=== PATIENT | female | born 1935 | race Caucasian/White ===

== ENCOUNTER 2018-10-28 08:34 | Emergency (ER) | payer MEDICARE, MEDICAID ==
[2018-10-28] MEDS ORDERED: LORazepam 0.5 MG Tab PO ONE (10:56)
--- NOTE | 2018-10-28 11:00 | EDM.PDOCBH ---
ED HPI GENERAL MEDICAL PROBLEM - General Chief Complaint: Behavioral/Psych Stated Complaint: VIA [facility]TH Time Seen by Provider: 10/28/18 08:50 Source of Information: Reports: Patient History Limitations: Reports: No Limitations - History of Present Illness INITIAL COMMENTS - FREE TEXT/NARRATIVE: pt has a known history of dementa and she got up angry and nort willing to be cooperative. She did begin to get physical and the exhibits manager were called. Her daughter felt like there could be something physically wrong. She did get brought in by ambulance. Onset: Other (pad week has been difficult with the pt. ) Duration: Hour(s): Location: Reports: Generalized Associated Symptoms: Reports: Confusion, Other ( agitation) - Related Data Allergies Allergy/AdvReac Type Severity Reaction Status Date / Time No Known Allergies Allergy Verified 10/28/18 08:43 Home Meds: Home Meds Aspirin [Halfprin] 81 mg PO DAILY 03/06/18 [History] Donepezil HCl 5 mg PO BEDTIME 03/06/18 [History] Citalopram Hydrobromide [Celexa] 10 mg PO DAILY 10/28/18 [History] Clopidogrel Bisulfate [Clopidogrel] 75 mg PO DAILY 10/28/18 [History] Lisinopril 2.5 mg PO DAILY 10/28/18 [History] Metoprolol Tartrate 12.5 mg PO BID 10/28/18 [History] atorvaSTATin [Lipitor] 40 mg PO BEDTIME 10/28/18 [History] diphenhydrAMINE HCl [Unisom] 50 mg PO BEDTIME PRN 10/28/18 [History] Past Medical History Cardiovascular History: Reports: High Cholesterol, Hypertension Genitourinary History: Reports: Urinary Incontinence 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: Musculoskeletal History: Reports: Osteoporosis Neurological History: Reports: Alzheimers Disease Psychiatric History: Reports: Alzheimers Disease Endocrine/Metabolic History: Reports: Other (See Below) Other Endocrine/Metabolic History: hyperglycemia - Past Surgical History HEENT Surgical History: Reports: Tonsillectomy Musculoskeletal Surgical History: Reports: Other (See Below) Other Musculoskeletal Surgeries/Procedures:: bunion surgery Social & Family History - Tobacco Use Smoking Status *Q: Never Smoker - Caffeine Use Caffeine Use: Reports: Coffee - Recreational Drug Use Recreational Drug Use: No ED ROS GENERAL - Review of Systems Review Of Systems: See Below Constitutional: Reports: No Symptoms HEENT: Reports: No Symptoms Respiratory: Reports: No Symptoms Cardiovascular: Reports: No Symptoms Endocrine: Reports: No Symptoms GI/Abdominal: Reports: No Symptoms : Reports: No Symptoms Musculoskeletal: Reports: No Symptoms Skin: Reports: No Symptoms Neurological: Reports: Confusion Psychiatric: Reports: Agitation, Mood Lability, Other ( very difficult at times. ) ED EXAM, BEHAVIORAL HEALTH - Physical Exam Exam: See Below Text/Narrative:: pt arrived with being more agitated and difficult. She would not liten to anyone and she did ge physical. by the time she arrived here she was calmer. Exam Limited By: No Limitations General Appearance: Alert, Other ( confused. Not able to answer alot of questions. pupils are equal and reactive. ) Ears: Normal TMs Nose: Normal Inspection Throat/Mouth: Normal Inspection Head: Atraumatic Neck: Normal Inspection Respiratory/Chest: No Respiratory Distress Cardiovascular: Regular Rate, Rhythm GI/Abdominal: Soft, Non-Tender (Female) Exam: Deferred Back Exam: Normal Inspection Extremities: Normal Inspection COURSE, BEHAVIORAL HEALTH COMP - Course Vital Signs: Last Vital Signs Temp 35.4 C 10/28/18 08:57 Pulse 67 10/28/18 08:57 Resp 16 10/28/18 08:57 BP 158/74 H 10/28/18 08:57 Pulse Ox 95 10/28/18 08:57 Orders, Labs, Meds: Active Orders 24 hr Category Date Time Status CULTURE URINE [RM] Stat Lab 10/28/18 09:29 Received Laboratory Tests 10/28/18 10/28/18 10/28/18 Range/Units 08:59 08:59 08:59 WBC 7.5 (4.5-11.0) K/uL RBC 4.65 (3.30-5.50) M/uL Hgb 13.4 (12.0-15.0) g/dL Hct 42.9 (36.0-48.0) % MCV 92 (80-98) fL MCH 29 (27-31) pg MCHC 31 L (32-36) % Plt Count 255 (150-400) K/uL Neut % (Auto) 57 (36-66) % Lymph % (Auto) 26 (24-44) % [place] % (Auto) 12 H (2-6) % Eos % (Auto) 4 (2-4) % Baso % (Auto) 1 (0-1) % Sodium 141 (140-148) mmol/L Potassium 4.0 (3.6-5.2) mmol/L Chloride 105 (100-108) mmol/L Carbon Dioxide 25 (21-32) mmol/L Anion Gap 11.3 (5.0-14.0) mmol/L BUN 16 (7-18) mg/dL Creatinine 1.0 (0.6-1.0) mg/dL Est Cr Clr Drug Dosing 32.16 mL/min Estimated GFR (MDRD) 53 L (>60) Glucose 116 H (74-106) mg/dL Calcium 8.8 (8.5-10.1) mg/dL Total Bilirubin 0.3 (0.2-1.0) mg/dL AST 24 (15-37) U/L ALT 29 (12-78) U/L Alkaline Phosphatase 99 (46-116) U/L Total Protein 7.0 (6.4-8.2) g/dL Albumin 3.1 L (3.4-5.0) g/dL Globulin 3.9 H (2.3-3.5) g/dL Albumin/Globulin Ratio 0.8 L (1.2-2.2) Urine Color Yellow Urine Appearance Slightly cloudy Urine pH 5.0 (4.5-8.0) Ur Specific Cooper 1.025 (1.008-1.030) Urine Protein Trace (NEGATIVE) mg/dL Urine Glucose (UA) Normal (NEGATIVE) mg/dL Urine Ketones Negative (NEGATIVE) mg/dL Urine Occult Blood Negative (NEGATIVE) Urine Nitrite Negative (NEGATIVE) Urine Bilirubin Negative (NEGATIVE) Urine Urobilinogen Normal (NORMAL) mg/dL Ur Leukocyte Esterase Negative (NEGATIVE) Urine RBC Not seen (0-5) Urine WBC 0-5 (0-5) Ur Epithelial Cells Many Amorphous Sediment Not seen Urine Bacteria Moderate Urine Mucus Few Medications Discontinued Medications Generic Name Dose Route Start Last Admin Trade Name Freq PRN Reason Stop Dose Admin Lorazepam 0.5 mg 10/28/18 10:56 Ativan PO 10/28/18 10:57 ONETIME ONE Medical Clearance: 10/28/18 11:19 pt did not look like a particularly infected urine, her labs otherwise were normal. The situation was discussed with her daughter and if her behavior continues to be a problem she may need a med adjstment in a senior behavioral center. Departure - Departure Time of Disposition: 10:57 Disposition: Home, Self-Care 01 Condition: Fair Clinical Impression: Agitation, Dementia - Discharge Information Instructions: Dementia, [id number] Referrals: Kristopher Sanches MD [Primary Care Provider] - Forms: ED Department Discharge Care Plan Goals: increase celexa to 20mg daily--2 tabs daily, push fluids, continue other meds, if persistent behavior issues consider placement in the Senior behavior unit. - My Orders Last 24 Hours: My Active Orders 10/28/18 09:29 CULTURE URINE [RM] Stat - Assessment/Plan Last 24 Hours: My Active Orders 10/28/18 09:29 CULTURE URINE [RM] Stat
== END 2018-10-28 11:48 | disposition home or self-care (01) ==
LOC: JP.ED 08:34
DX: R45.1 Restlessness and agitation (principal); F03.90 Unspecified dementia, unspecified severity, without behavioral disturbance, psychotic disturbance, mood disturbance, and anxiety; E78.00 Pure hypercholesterolemia, unspecified; I10 Essential (primary) hypertension; Z79.82 Long term (current) use of aspirin; Z79.899 Other long term (current) drug therapy
CPT/HCPCS: 36415; 80053; 81001; 85025; 87086; 99283; 99284

== ENCOUNTER 2019-03-28 13:15 | Emergency (ER) | payer MEDICARE ==
--- NOTE | 2019-03-28 14:04 | EDM.PDOC ---
ED HPI GENERAL MEDICAL PROBLEM - General Chief Complaint: General Stated Complaint: SOB Time Seen by Provider: 03/28/19 13:45 Source of Information: Reports: Patient, Family History Limitations: Reports: Physical Impairment (Patient has significant dementia and is a poor historian) - History of Present Illness INITIAL COMMENTS - FREE TEXT/NARRATIVE: 83-year-old female fell down some stairs 3 weeks ago, sustaining a right chest wall injury. She refused transportation by EMS on that night, the following week went into the clinic to be checked and was found to be stable. She refused any x-rays at that time. She has done reasonably well but over the past several days she has seemed more short of breath especially with any activity. A home health nurse jacob today felt she should be evaluated. There was a concern for asymmetric breath sounds with decreased breath sounds on the right side. She denies any pain, she says she is fine. Onset: Unknown/Unsure (Fall was 3 weeks ago, shortness of breath has been over the last several days) Worsens with: Reports: Other (Activity causes dyspnea), Movement - Related Data Allergies Allergy/AdvReac Type Severity Reaction Status Date / Time No Known Allergies Allergy Verified 10/28/18 08:43 Home Meds: Home Meds Aspirin [Halfprin] 81 mg PO DAILY 03/06/18 [History] Donepezil HCl 5 mg PO BEDTIME 03/06/18 [History] Citalopram Hydrobromide [Celexa] 10 mg PO DAILY 10/28/18 [History] Clopidogrel Bisulfate [Clopidogrel] 75 mg PO DAILY 10/28/18 [History] Metoprolol Tartrate 12.5 mg PO BID 10/28/18 [History] atorvaSTATin [Lipitor] 40 mg PO BEDTIME 10/28/18 [History] lisinopriL [Lisinopril] 2.5 mg PO DAILY 10/28/18 [History] Cholecalciferol (Vitamin D3) [Vitamin D] 1,000 unit PO DAILY 02/28/19 [History] Past Medical History Cardiovascular History: Reports: High Cholesterol, Hypertension Genitourinary History: Reports: Urinary Incontinence 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: Musculoskeletal History: Reports: Osteoporosis Neurological History: Reports: Alzheimers Disease Psychiatric History: Reports: Alzheimers Disease Endocrine/Metabolic History: Reports: Other (See Below) Other Endocrine/Metabolic History: hyperglycemia - Past Surgical History HEENT Surgical History: Reports: Tonsillectomy Musculoskeletal Surgical History: Reports: Other (See Below) Other Musculoskeletal Surgeries/Procedures:: bunion surgery Social & Family History - Tobacco Use Smoking Status *Q: Never Smoker - Caffeine Use Caffeine Use: Reports: Coffee, Soda - Recreational Drug Use Recreational Drug Use: No ED ROS GENERAL - Review of Systems Review Of Systems: See Below Constitutional: Denies: Fever, Chills HEENT: Reports: Other (Small abrasion on her upper lip is new in the past 1 to 2 days but she denies trauma) Respiratory: Reports: Shortness of Breath (Especially with activity). Denies: Cough Cardiovascular: Reports: Chest Pain (Right posterior flank pain and right lateral chest pain is improving) GI/Abdominal: Reports: No Symptoms Skin: Reports: Bruising (Bruising has resolved) Neurological: Reports: Confusion Psychiatric: Reports: Agitation (Patient has dementia and gets agitated very easily, does not cooperate well) ED EXAM, GENERAL - Physical Exam Exam: See Below Exam Limited By: No Limitations General Appearance: Alert, No Apparent Distress Eye Exam: Bilateral Eye: Normal Inspection Head: Atraumatic Neck: Normal Inspection, Supple Respiratory/Chest: No Respiratory Distress, Decreased Breath Sounds (There are definitely decreased breath sounds in the right posterior lung), Other (I can also palpate crepitus on the right posterior chest over the lower ribs) Cardiovascular: Regular Rate, Rhythm. No: Tachycardia Extremities: Normal Inspection Neurological: Alert, Confused (She is at her baseline amount of confusion) Skin Exam: Warm, Dry Course - Vital Signs Last Recorded V/S: Last Vital Signs Temp 97.9 F 03/28/19 13:36 Pulse 77 03/28/19 13:36 Resp 18 03/28/19 13:36 BP 167/68 H 03/28/19 13:36 Pulse Ox 93 L 03/28/19 13:36 - Orders/Labs/Meds Orders: Active Orders 24 hr Category Date Time Status US Guidance Thoracentesis NC [US] Stat Exams 03/28/19 14:15 Taken CULTURE ANAEROBIC [RM] Routine Lab 03/28/19 15:13 Received CULTURE BODY FLUID + SMEAR [RM] Routine Lab 03/28/19 15:12 Results Labs: Laboratory Tests 03/28/19 03/28/19 Range/Units 14:19 14:19 WBC 9.6 (4.5-11.0) K/uL RBC 4.15 (3.30-5.50) M/uL Hgb 11.7 L D (12.0-15.0) g/dL Hct 38.2 (36.0-48.0) % MCV 92 (80-98) fL MCH 28 (27-31) pg MCHC 31 L (32-36) % Plt Count 441 H (150-400) K/uL Neut % (Auto) 73 H (36-66) % Lymph % (Auto) 10 L (24-44) % Sebastian % (Auto) 13 H (2-6) % Eos % (Auto) 4 (2-4) % Baso % (Auto) 0 (0-1) % Sodium 136 L (140-148) mmol/L Potassium 4.1 (3.6-5.2) mmol/L Chloride 101 (100-108) mmol/L Carbon Dioxide 27 (21-32) mmol/L Anion Gap 12.1 (5.0-14.0) mmol/L BUN 20 H (7-18) mg/dL Creatinine 0.9 (0.6-1.0) mg/dL Est Cr Clr Drug Dosing 35.11 mL/min Estimated GFR (MDRD) 60 (>60) Glucose 138 H (74-106) mg/dL Calcium 8.7 (8.5-10.1) mg/dL - Re-Assessments/Exams Free Text/Narrative Re-Assessment/Exam: 03/28/19 14:04 Patient was sent for two-view chest x-ray. 03/28/19 14:17 Chest x-ray confirms a very large right pleural effusion and rib fractures are evident in the posterior ribs. A baseline CBC and BMP will be drawn and Dr. Dawn was consulted for thoracentesis. Ultrasound guidance was ordered. 03/28/19 15:14 Thoracentesis was performed by Dr. Dawn. 1400 cc of nonclotting bloody effusion was removed from the lung space, and a repeat x-ray showed significant improvement without pneumothorax. We will set her up for a repeat chest x-ray with her primary care doctor on Monday next week, and she can return sooner if worsening. 03/28/19 15:45 White count was normal, hemoglobin 11.7. 03/28/19 15:45 The rest of her labs were normal Departure - Departure Time of Disposition: 16:08 Disposition: Home, Self-Care 01 Clinical Impression: Hemothorax Right rib fracture Qualifiers: Encounter type: initial encounter Rib fracture type: single rib Fracture type: closed Qualified Code(s): S22.31XA - Fracture of one rib, right side, initial encounter for closed fracture - Discharge Information Instructions: Hemothorax Referrals: PCP,None [Primary Care Provider] - Forms: ED Department Discharge Care Plan Goals: Recheck on Monday with Dr. Sanches for a repeat chest x-ray. Your appointment is at 10:30 AM, if you going sooner you can get the x-ray done prior to your appointment. Return sooner if worsening or concerns such as significant shortness of breath returning rapidly. Sepsis Event Note - Evaluation Sepsis Screening Result: No Definite Risk - Focused Exam Vital Signs: Vital Signs Temp Pulse Resp BP Pulse Ox 03/28/19 13:36 97.9 F 77 18 167/68 H 93 L 03/28/19 13:34 97.9 F 77 18 167/68 H 93 L Date Exam was Performed: 03/28/19 Time Exam was Performed: 16:18 - My Orders Last 24 Hours: My Active Orders 03/28/19 14:15 US Guidance Thoracentesis NC [US] Stat 03/28/19 15:12 CULTURE BODY FLUID + SMEAR [RM] Routine 03/28/19 15:13 CULTURE ANAEROBIC [RM] Routine - Assessment/Plan Last 24 Hours: My Active Orders 03/28/19 14:15 US Guidance Thoracentesis NC [US] Stat 03/28/19 15:12 CULTURE BODY FLUID + SMEAR [RM] Routine 03/28/19 15:13 CULTURE ANAEROBIC [RM] Routine
--- NOTE | 2019-03-28 14:19 | CRLCR ---
INDICATION: Dyspnea TECHNIQUE: Chest radiograph 2 views COMPARISON: None FINDINGS: Mediastinum: The mediastinum is normal in appearance. The heart silhouette is normal in size and morphology. Lung: Large right pleural effusion is present consolidation of most of the right lung base seen. No pneumothorax is identified. Bone and Soft tissue: Unremarkable for age. IMPRESSION: 1. Large right pleural effusion is present consolidation of most of the right lung base seen. Dictated by Santino Salguero MD @ 03/28/2019 2:18:06 PM Dictated by: Santino Salguero MD @ 03/28/2019 14:18:08 (Electronically Signed)
--- NOTE | 2019-03-28 15:59 | CRLCR ---
INDICATION: Post thoracentesis TECHNIQUE: Chest 1 views COMPARISON: Chest x-ray 03/28/2019. FINDINGS: Lungs: There is significant improvement in the previously seen right-sided pleural effusion. The left lung is clear. Mediastinum: Heart size is normal. Pulmonary vasculature is distinct. Bones/soft tissues: Negative. IMPRESSION: 1. Significant improvement in right-sided pleural effusion consistent with recent thoracentesis. There is no evidence of pneumothorax. 2. Clear left lung. Dictated by Kaden Solo MD @ Mar 28 2019 3:55PM Signed by Dr. Kaden Solo @ Mar 28 2019 3:57PM
--- NOTE | 2019-04-01 09:54 | PROC ---
DATE OF PROCEDURE: 03/28/2019 SURGEON: Jay Dawn MD PREOPERATIVE DIAGNOSIS: Large right pleural effusion. POSTOPERATIVE DIAGNOSIS: Large bloody right pleural effusion. OPERATIVE PROCEDURE: Ultrasound-guided right thoracentesis ([id number]). ANESTHESIA: Local. INDICATION FOR PROCEDURE: The patient is 3 weeks status post a fall in which she sustained at least one, but probably multiple broken ribs. She has been seen by home care this morning and was found to be somewhat more short of breath and had limited breath sounds on the right side and was sent to the emergency room. Chest x-ray there showed at least 1 rib fracture and a very large pleural effusion occupying somewhere around 80% of the right pleural space. Plan is to proceed with a thoracentesis. The patient has a fair bit of dementia, and the situation and consent were obtained with the assistance of the patient's daughter. Potential risks including further bleeding, infection, pneumothorax and such were all reviewed, and they wished to proceed. DETAILS OF PROCEDURE: The patient was placed in sitting position in the emergency department, ultrasounded, and marked a site for the thoracentesis in the right posterior lateral chest wall. That area was then prepped and draped, anesthetized with 1% lidocaine, and the thoracentesis catheter was then placed in the pleural space. 1400 mL of very thick blood-tinged pleural fluid was evacuated, as much fluid as possible was removed, at which time the procedure was concluded. Subsequent chest x-ray showed much improvement, but there is still some substantial amount of fluid, more than likely solid clot, within the left base. The patient's respiratory status was quite a bit improved at that point. Jay Dawn MD /[id number]
--- NOTE | 2019-04-01 11:18 | PN ---
DATE OF SERVICE: 03/28/2019 This is an 83-year-old who 3 weeks ago fell down the stairs and sustained at least 1 and probably multiple rib fractures. She was seen by Home Care this morning and was felt to have decreased breath sounds and some increasing shortness of breath and was brought to the emergency room, which showed, in addition to the rib fractures, a very large pleural effusion, 1400 mL of bloody fluid was evacuated, and a postprocedure chest x-ray showed marked improvement, but there was still a large amount of fluid or more likely organized clot in the base. This was probably organized hematoma at this point, which, everything being equal, would be best treated with a thoracoscopy and evacuation. Given the patient's tolerance of the present respiratory status and her relatively frail state and dementia, I think we will probably watch this case and, as long as she is doing okay respiratory patel, not intervene further. The patient will be seen by Dr. Sanches next Monday for a followup chest x-ray and make sure we are not seeing a return of the reactive pleural effusion and a general assessment at that time. The patient still has quite a bit of pain with regard to the rib fractures, and it was discussed with the daughter that pain management should avoid narcotics, given her dementia, and we will go with Tylenol alternating with ibuprofen, and again follow up with Dr. Sanches in 4 days with a followup chest x-ray at that time. Jay Dawn MD /[id number]
== END 2019-03-28 16:08 | disposition home or self-care (01) ==
LOC: JP.ED 13:15
DX: S27.1XXA Traumatic hemothorax, initial encounter (principal); S22.31XA Fracture of one rib, right side, initial encounter for closed fracture; G30.9 Alzheimer's disease, unspecified; F02.80 Dementia in other diseases classified elsewhere, unspecified severity, without behavioral disturbance, psychotic disturbance, mood disturbance, and anxiety; E78.00 Pure hypercholesterolemia, unspecified; I10 Essential (primary) hypertension; Z79.899 Other long term (current) drug therapy; Z79.02 Long term (current) use of antithrombotics/antiplatelets; Z79.82 Long term (current) use of aspirin; W10.9XXA Fall (on) (from) unspecified stairs and steps, initial encounter
CPT/HCPCS: 32555; 36415; 71045; 71046; 80048; 85025; 87070; 87075; 87077; 87186; 87205; 99284; 99285-25

== ENCOUNTER 2019-10-18 11:21 | Emergency (ER) | payer MEDICARE ==
--- NOTE | 2019-10-18 11:53 | EDM.PDOCBH ---
ED HPI GENERAL MEDICAL PROBLEM - General Chief Complaint: Behavioral/Psych Stated Complaint: [facility] Time Seen by Provider: 10/18/19 11:22 Source of Information: Reports: Patient, EMS, Other ([facility] staff) History Limitations: Reports: Combative/Threatening, Uncooperative (swearing and striking door in room 8. Patient is nota risk for hurting self but will likely strike out at staff. Patient asks questions in duplicate during my interview. Able to redirect patient but behavior of swearing and pounding on the door resumes within minutes. ) - History of Present Illness INITIAL COMMENTS - FREE TEXT/NARRATIVE: 83 year old female with long standing history of Alzheimer's and dementia whom was dropped off at [facility] this am. Patient repeat that she was a the clinic for a shot and wants to go home. [facility] reports patient was walked into the care center by daughter whom turned around and left the facility. Patient's behavior was too combative and unsafe for the facility. EMS was contacted brought to ER for evaluation. I do not know if admission was planned today by daughter but [facility] reported no available medical history, list of current medications or orders for admission from primary care provider for admission. [facility] does not feel the patient is safe at their facility. Police were available at [facility] to take a report, I spoke with police regarding [place] supervisor fur floor worker to be contacted about situation with placement assistance. Daughter was contacted about mother being brought to ER from [facility] for evaluation due to acute uncontrollable behavior. Daughter was asked to present to ER to discuss mother's medical history and her concerns about continuing care. - Related Data Allergies Allergy/AdvReac Type Severity Reaction Status Date / Time No Known Allergies Allergy Verified 10/18/19 11:39 Home Meds: Home Meds Aspirin [Halfprin] 81 mg PO DAILY 03/06/18 [History] Donepezil HCl 5 mg PO BEDTIME 03/06/18 [History] Citalopram Hydrobromide [Celexa] 20 mg PO DAILY 10/28/18 [History] Clopidogrel Bisulfate [Clopidogrel] 75 mg PO DAILY 10/28/18 [History] Metoprolol Tartrate 12.5 mg PO BID 10/28/18 [History] atorvaSTATin [Lipitor] 40 mg PO BEDTIME 10/28/18 [History] lisinopriL [Lisinopril] 2.5 mg PO DAILY 10/28/18 [History] Cholecalciferol (Vitamin D3) [Vitamin D] 1,000 unit PO DAILY 02/28/19 [History] Past Medical History HEENT History: Reports: Impaired Vision Cardiovascular History: Reports: High Cholesterol, Hypertension Genitourinary History: Reports: Urinary Incontinence MEDICAL CENTER DIRECTOR History: Reports: Musculoskeletal History: Reports: Osteoporosis Neurological History: Reports: Alzheimers Disease Psychiatric History: Reports: Alzheimers Disease Endocrine/Metabolic History: Reports: Other (See Below) Other Endocrine/Metabolic History: hyperglycemia Hematologic History: Reports: Anticoagulation Therapy - Past Surgical History HEENT Surgical History: Reports: Tonsillectomy Musculoskeletal Surgical History: Reports: Other (See Below) Other Musculoskeletal Surgeries/Procedures:: bunion surgery Social & Family History - Caffeine Use Caffeine Use: Reports: Coffee, Soda ED ROS GENERAL - Review of Systems Review Of Systems: Unable To Obtain Reason Not Obtained: geriatric behavior acute psychosis due to known dementia ED EXAM, BEHAVIORAL HEALTH - Physical Exam Exam: See Below Exam Limited By: Uncooperative General Appearance: Alert, WD/WN, Severe Distress (due to being in ER wanting to go home) Eye Exam: Bilateral Eye: EOMI Ears: Hearing Grossly Normal Nose: Normal Inspection Throat/Mouth: Normal Inspection Neck: Full Range of Motion Respiratory/Chest: No Respiratory Distress (patient yelling without difficulty) Cardiovascular: Other (patient up and walking around, pounding on the door and yelling without limitations) GI/Abdominal: Other (patient up and walking around, pounding on the door and yelling without limitations) (Female) Exam: Deferred Rectal (Female) Exam: Deferred Back Exam: Full Range of Motion (able to sit at side of bed and chair in room without difficulty) Extremities: Other (bruising and discoloration bilateral hands and lwoer legs. No other exposed skin noted) Neurological: Alert, Normal Gait. No: Normal Cognition (confusion wtih repetative questions and outburst of anger due to being in a locked hospital room. Patient can be redirected for a very brienf period of time before yelling, swearing and pound on exam room door. Linda was given Zyrexa 5mg IM for afety and behavior outbursts. Patient remains angry, behavior has improve but can be redirected easier. Patient is now patting the door without yelling or swelling. ) Psychiatric: Restless, Agitated, Uncooperative, Tangential Thoughts, Threatening Behavior Skin Exam: Warm, Dry COURSE, BEHAVIORAL HEALTH COMP - Course Vital Signs: Last Vital Signs Temp 35.2 C L 10/18/19 11:38 Pulse 90 10/18/19 13:33 Resp 18 10/18/19 13:33 BP 167/82 H 10/18/19 13:33 Pulse Ox 97 10/18/19 13:33 Orders, Labs, Meds: Active Orders 24 hr Category Date Time Status Vital Signs [RC] PFP Care 10/18/19 13:30 Active Laboratory Tests 10/18/19 10/18/19 Range/Units 12:35 12:35 WBC 9.1 (4.5-11.0) K/uL RBC 5.07 (3.30-5.50) M/uL Hgb 13.7 D (12.0-15.0) g/dL Hct 44.5 (36.0-48.0) % MCV 88 (80-98) fL MCH 27 (27-31) pg MCHC 31 L (32-36) % Plt Count 320 (150-400) K/uL Neut % (Auto) 72 H (36-66) % Lymph % (Auto) 18 L (24-44) % [place] % (Auto) 8 H (2-6) % Eos % (Auto) 1 L (2-4) % Baso % (Auto) 0 (0-1) % Sodium 140 (140-148) mmol/L Potassium 4.2 (3.6-5.2) mmol/L Chloride 103 (100-108) mmol/L Carbon Dioxide 28 (21-32) mmol/L Anion Gap 8.8 (5.0-14.0) mmol/L BUN 14 (7-18) mg/dL Creatinine 1.1 H (0.6-1.0) mg/dL Est Cr Clr Drug Dosing 31.49 mL/min Estimated GFR (MDRD) 47 L (>60) Glucose 122 H (74-106) mg/dL Calcium 8.8 (8.5-10.1) mg/dL Total Bilirubin 0.6 (0.2-1.0) mg/dL AST 20 (15-37) U/L ALT 31 (12-78) U/L Alkaline Phosphatase 112 (46-116) U/L Total Protein 7.6 (6.4-8.2) g/dL Albumin 3.5 (3.4-5.0) g/dL Globulin 4.1 H (2.3-3.5) g/dL Albumin/Globulin Ratio 0.9 L (1.2-2.2) Medications Discontinued Medications Generic Name Dose Route Start Last Admin Trade Name Opal BUSBY Reason Stop Dose Admin Lorazepam 2 mg 10/18/19 19:26 Ativan IM 10/18/19 19:27 ONETIME STA Olanzapine 5 mg 10/18/19 11:54 10/18/19 12:23 Zyprexa IM 10/18/19 11:55 5 mg ONETIME ONE Administration Olanzapine 10 mg 10/18/19 16:29 10/18/19 16:46 Zyprexa IM 10/18/19 16:30 10 mg ONETIME ONE Administration Re-Assessment/Re-Exam: Daughter arrived 30 minutes after patient arrived, awaiting for blood test results, nursing and/or social work support before speaking to daughter. 1:30 pm: Told by nursing staff that daughter left without being able to speak to her about what happened today. Nursing staff will need to call daughter back for discussion. 4:00 pm: Daughter returned to ER to discuss situation with mother's behavior and placement difficulties. Daughter, Candy, has cesia working with [facility] to get Medical Assistance for behavior health care and memory care placement. Patient was brought to [facility] by family but family left without assisting to complete orders and medical documentation. Patient's behavior become aggressive, swearing and belligerent at the care center, environment is unable to manage current behavior. Daughter is tearful and family can not manage patient's behavior at home any more. Daughter has medical documentation in for her mother which was supposed to be left at the care center this am. Daughter is not comfortable or willing to take patient home today due to family and patient safety. Patient's behavior is escalating again at this time. Zyprexa 10 mg IM at this time (patient tolerated 5mg well with improved behavior). Requested to transfer requested and pending acceptance, which is approved by daughter at this time. Re-Assessment/Re-Exam Date: 10/18/19 (Daughter on phone with possbile accepting facility for Acute geriatric mental health care) Re-Assessment/Re-Exam Time: 16:31 (Acceptance at acute geriatric mental health facility. 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 Dementia Qualifiers: Dementia type: Alzheimer's disease Alzheimer's disease onset: late-onset Dementia behavioral disturbance: with behavioral disturbance Qualified Code(s): G30.1 - Alzheimer's disease with late onset - Discharge Information Referrals: PCP,None [Primary Care Provider] - Forms: Interfacility Transfer DARA Sepsis Event Note (ED) - Evaluation Sepsis Screening Result: No Definite Risk - Focused Exam Vital Signs: Vital Signs Temp Pulse Resp BP Pulse Ox 10/18/19 13:33 90 18 167/82 H 97 10/18/19 11:38 35.2 C L 67 16 177/70 H 95 10/18/19 11:29 35.2 C L 67 16 177/70 H 95 - My Orders Last 24 Hours: My Active Orders 10/18/19 13:30 Vital Signs [RC] PFP - Assessment/Plan Last 24 Hours: My Active Orders 10/18/19 13:30 Vital Signs [RC] PFP
[2019-10-18] MEDS ORDERED: OLANZapine 10 MG Vial IM ONE ×3 (11:54→16:29)
[2019-10-18] MEDS ORDERED: LORazepam 2 MG/ML SDV IM STA (19:26)
== END 2019-10-18 20:02 ==
LOC: JP.ED 11:21
DX: F29 Unspecified psychosis not due to a substance or known physiological condition (principal); G30.1 Alzheimer's disease with late onset; E78.00 Pure hypercholesterolemia, unspecified; I10 Essential (primary) hypertension; Z79.02 Long term (current) use of antithrombotics/antiplatelets; Z79.899 Other long term (current) drug therapy
CPT/HCPCS: 36415; 80053; 85025; 96372; 99285; J2060; J3490